=== PATIENT | female | born 1995 | race Caucasian/White ===

== ENCOUNTER 2018-07-27 20:35 | Emergency (ER) | payer BC ==
[~2018-07-27] VITALS: Ht 172.7 cm; Wt 80.7 kg
[~2018-07-27 20:35] MED LIST: CEFTIN250 M1 PO; CEPHALEXIN500 M2 PO; PROMETHAZINE HC25 M2 PO; SPRINTEC 35 MCG1 TAB PO; TORADOL 10MG TA10 MG PO; ZOFRAN ODT8 MG PO; ZORVOLEX18 MG PO
[2018-07-27] MEDS ORDERED: YAZ 3 MG-0.02 M1 TAB PO (20:58)
[2018-07-27] MEDS ORDERED: VENLAFAXINE HYD75 MG PO (20:58)
[2018-07-27] MEDS ORDERED: PENICILLIN-VK500 M1 PO (20:59)
[2018-07-27] MEDS ORDERED: AUGMENTIN 875-1 EAC1 PO (23:12)
[2018-07-27] MEDS ORDERED: NORCO 325 MG-51 TA1 PO (23:16)
[2018-07-27 23:30] VITALS: BP 148/89
== END 2018-07-27 23:30 | disposition home or self-care (01) ==
LOC: ED 20:35
DX: S51.852A Open bite of left forearm, initial encounter (principal); S61.451A Open bite of right hand, initial encounter; M25.532 Pain in left wrist; W54.0XXA Bitten by dog, initial encounter; Y92.414 Local residential or business street as the place of occurrence of the external cause; Z23 Encounter for immunization
CPT/HCPCS: 90715

== ENCOUNTER → 2019-08-31 | Outpatient (CLI) | payer BC ==
[~2019-08-31] VITALS: Ht 172.7 cm; Wt 80.7 kg
[~2019-08-31] MED LIST changes: +AUGMENTIN 875-1 EAC1 PO; +NORCO 325 MG-51 TA1 PO; +PENICILLIN-VK500 M1 PO; +VENLAFAXINE HYD75 MG PO; +YAZ 3 MG-0.02 M1 TAB PO
[2019-08-31 10:13] VITALS: BP 131/82
== END ==
LOC: AMSURD 09:10
DX: M94.0 Chondrocostal junction syndrome [Tietze] (principal); F43.9 Reaction to severe stress, unspecified; R07.9 Chest pain, unspecified

== ENCOUNTER → 2022-01-04 | Outpatient (CLI) | payer BC ==
[2022-01-04 15:43] LABS: BASO # 0.04 K/mm3 (0.02-0.10); EOS # 0.08 K/mm3 (0.04-0.40); EOS % 1.2 % (1.0-5.0); HEMOGLOBIN 13.7 g/dL (12.5-16.0); LYMPH# 2.27 K/mm3 (1.50-4.00); MEAN CELL VOLUME 97 fl (78-100); MEAN CORPUSCULAR HEMOGLOBIN 33 pg (27-31); MEAN CORPUSCULAR HGB CONC 34 g/dL (33-37); MEAN PLATELET VOLUME 9.5 fl (7.4-10.4); MONO # 0.68 K/mm3 (0.20-0.80); NEU # 3.76 K/mm3 (1.40-6.50); PLATELET COUNT 323 K/mm3 (130-400); RED BLOOD COUNT 4.13 M/mm3 (4.10-5.30); RED CELL DISTRIBUTION WIDTH 11.5 % (11.5-14.5); WHITE BLOOD COUNT 6.8 K/mm3 (4.8-10.8)
[2022-01-04 16:00] LABS: POTASSIUM 4.2 mmol/L (3.5-5.1)
[2022-01-04 16:01] LABS: ALBUMIN 4.3 g/dL (3.5-5.0)
[2022-01-04 16:02] LABS: CALCIUM 9.6 mg/dL (8.3-10.5)
== END ==
LOC: LAB 15:33
PROVIDERS: Physician Assistant
DX: Z00.00 Encounter for general adult medical examination without abnormal findings (principal); Z13.29 Encounter for screening for other suspected endocrine disorder; Z13.1 Encounter for screening for diabetes mellitus; L50.3 Dermatographic urticaria; I10 Essential (primary) hypertension

== ENCOUNTER → 2022-02-21 | Outpatient (REF) | payer BC | LOC: LAB 16:51 → EDSTATUS 16:53 | DX: L50.8 Other urticaria (principal) ==

== ENCOUNTER → 2023-01-22 | Outpatient (CLI) | payer OTHER ==
[2023-01-22 14:13] LABS: POTASSIUM 4.4 mmol/L (3.5-5.1)
[2023-01-22 14:14] LABS: ALBUMIN 4.4 g/dL (3.5-5.0)
[2023-01-22 14:15] LABS: CALCIUM 9.7 mg/dL (8.3-10.5)
[2023-01-22 14:16] LABS: TOTAL PROTEIN 7.1 g/dL (6.4-8.3)
[2023-01-22 14:18] LABS: BASO # 0.04 K/mm3 (0.02-0.10); EOS # 0.21 K/mm3 (0.04-0.40); EOS % 3.1 % (1.0-5.0); HEMATOCRIT 41.1 % (37.0-47.0); HEMOGLOBIN 13.8 g/dL (12.5-16.0); MEAN CELL VOLUME 96 fl (78-100); MEAN CORPUSCULAR HEMOGLOBIN 32 pg (27-31); MEAN CORPUSCULAR HGB CONC 34 g/dL (33-37); MEAN PLATELET VOLUME 10.5 fl (7.4-10.4); MONO # 0.78 K/mm3 (0.20-0.80); NEU # 3.13 K/mm3 (1.40-6.50); PLATELET COUNT 301 K/mm3 (130-400); RED BLOOD COUNT 4.29 M/mm3 (4.10-5.30); RED CELL DISTRIBUTION WIDTH 11.9 % (11.5-14.5); TOTAL BILIRUBIN 1.3 mg/dL (0.2-1.2); WHITE BLOOD COUNT 6.7 K/mm3 (4.8-10.8)
== END ==
LOC: LAB 13:50
PROVIDERS: Physician Assistant
DX: Z00.00 Encounter for general adult medical examination without abnormal findings (principal); Z13.220 Encounter for screening for lipoid disorders; I10 Essential (primary) hypertension

== ENCOUNTER → 2024-05-25 | Outpatient (CLI) | payer OTHER | LOC: RAD 10:06 | DX: M54.50 Low back pain, unspecified (principal) ==

== ENCOUNTER → 2024-07-29 | Outpatient (CLI) | payer OTHER ==
[2024-07-29 09:13] LABS: BASO # 0.04 K/mm3 (0.02-0.10); EOS # 0.28 K/mm3 (0.04-0.40); EOS % 4.4 % (1.0-5.0); HEMATOCRIT 40.8 % (37.0-47.0); HEMOGLOBIN 13.9 g/dL (12.5-16.0); LYMPH# 2.16 K/mm3 (1.50-4.00); MEAN CELL VOLUME 97 fl (78-100); MEAN CORPUSCULAR HEMOGLOBIN 33 pg (27-31); MEAN CORPUSCULAR HGB CONC 34 g/dL (33-37); MEAN PLATELET VOLUME 9.9 fl (7.4-10.4); MONO # 0.73 K/mm3 (0.20-0.80); NEU # 3.11 K/mm3 (1.40-6.50); PLATELET COUNT 355 K/mm3 (130-400); RED BLOOD COUNT 4.19 M/mm3 (4.10-5.30); RED CELL DISTRIBUTION WIDTH 12.3 % (11.5-14.5); WHITE BLOOD COUNT 6.3 K/mm3 (4.8-10.8)
[2024-07-29 09:23] LABS: ALBUMIN 4.3 g/dL (3.5-5.0)
[2024-07-29 09:24] LABS: CALCIUM 9.3 mg/dL (8.3-10.5)
[2024-07-29 09:25] LABS: TOTAL PROTEIN 6.7 g/dL (6.4-8.3)
[2024-07-29 09:27] LABS: TOTAL BILIRUBIN 0.7 mg/dL (0.2-1.2)
== END ==
LOC: LAB 08:50
PROVIDERS: Physician Assistant
DX: Z13.220 Encounter for screening for lipoid disorders (principal); I10 Essential (primary) hypertension; R63.5 Abnormal weight gain; Z86.79 Personal history of other diseases of the circulatory system